=== PATIENT | male | born 1945 | race Two or more races ===

== ENCOUNTER → 2024-09-06 | Outpatient (CLI) | payer OTHER, MEDICAID, SELFPAY ==
[2024-09-06 10:08] LABS: Collection Type, Urine Clean Catch; Squamous Epithelial Cell,Urine 0 /hpf (0-5)
[2024-09-06 10:33] LABS: Prostate Specific Antigen 2.66 ng/mL (0-4.00)
[2024-09-06 10:34] LABS: Basophils # (Auto) 0.1 Thou/mm3 (0.0-0.2); Basophils % (Auto) 1 % (0-2.5); Eosinophils # (Auto) 0.2 Thou/mm3 (0.0-0.5); Eosinophils % (Auto) 2 % (0-10); Hematocrit 39.8 % (41.0-53.0); Hemoglobin 13.2 g/dL (13.5-16.0); Immature Granulocytes % (Auto) 0 % (0-0); Immature Granulocytes Auto 0.01 Thou/mm3 (0.00-0.00); Lymphocytes # (Auto) 1.5 Thou/mm3 (1.0-4.8); Lymphocytes % (Auto) 17 % (10-50); Mean Corpuscular HGB Conc 33.2 g/dl (31.0-37.0); Mean Corpuscular Hemoglobin 29.7 pg (25.0-35.0); Mean Corpuscular Volume 90 fL (80-100); Monocytes # (Auto) 0.8 Thou/mm3 (0.0-0.8); Monocytes % (Auto) 9 % (0-12); Neutrophils # (Auto) 6.2 Thou/mm3 (1.8-7.7); Neutrophils % (Auto) 71 % (37-80); Nucleated Red Blood Cell % 0 /100 WBC (0); Platelet Count 247 Thou/mm3 (140-440); RDW Standard Deviation 45.1 fL (35.1-43.9); Red Blood Count 4.44 Miln/mm3 (4.50-5.90); White Blood Count 8.7 Thou/mm3 (3.8-10.6)
[2024-09-06 10:36] LABS: Vitamin D 25 Hydroxy Total 36.7 ng/mL (7.3-40.2)
[2024-09-06 10:40] LABS: Creatinine MALB Rnd Ur 49 mg/dL (30-125); Microalbumin Creat Ratio 451 mg/gCrea (<30); Microalbumin, Random Urine 221 mg/L (0-300)
[2024-09-06 10:48] LABS: Alanine Aminotransferase 18 U/L (10-49); Albumin, Serum 4.5 gm/dL (3.4-4.8); Albumin/Globulin Ratio 1.9 (1.2-2.2); Alkaline Phosphatase 127 U/L (46-116); Anion Gap 7 (7-16); Aspartate Amino Transferase 18 U/L (0-34); BUN/Creatinine Ratio 16 Ratio (12-20); Bilirubin,Total 0.4 mg/dL (0.3-1.2); Blood Urea Nitrogen 14 mg/dL (9-23); Calcium 9.4 mg/dL (8.3-10.6); Calcium (Corrected) 9.4 mg/dL (8.5-10.1); Carbon Dioxide 25.9 mMol/L (20.0-31.0); Cardiac Risk Estimate 4.5 RATIO (4.0-6.7); Chloride 104 mMol/L (98-107); Cholesterol 131 mg/dL (132-200); Creatinine (Component) 0.9 mg/dL (0.6-1.3); Globulin 2.4 gm/dL (2.3-3.5); Glucose 145 mg/dL (74-106); HDL Cholesterol 29 mg/dL (40-60); LDL Cholesterol,Calculated 81 mg/dL (0-130); Osmolality,Calculated 277 (275-295); Potassium 4.4 mMol/L (3.4-5.1); Sodium 137 mMol/L (136-145); Thyroid Stimulating Hormone 3.31 uIU/mL (0.55-4.78); Total Protein 6.9 gm/dL (5.7-8.2); Triglycerides 106 mg/dL (30-150); eGFR > 60 See Note
[2024-09-06 11:33] LABS: Bilirubin,Urine Negative (Negative); Blood,Urine Negative (Negative); Clarity,Urine Clear (Clear/Hazy); Color,Urine Colorless (Lt Yel-Yel); Glucose, Urine Negative (Negative); Ketones,Urine Negative (Negative); Leukocyte Esterase,Urine Negative (Negative); Nitrite,Urine Negative (Negative); Protein,Urine 1+ (Neg - Trace); RBC,Urine 2 /hpf (0-3); Specific Gravity,Urine 1.011 (1.001-1.035); Urobilinogen,Urine Negative mg/dL (0.0-1.0); WBC,Urine 1 /hpf (0-5)
[2024-09-06 11:46] LABS: Glucose Estimated Average 157 mg/dL (80-131); Hemoglobin A1C 7.1 % Hgb (4.8-6.0)
== END | disposition home or self-care (01) ==
LOC: COPL 09:26
PROVIDERS: PCP Family Medicine; Referring Provider Family Medicine; Visit Provider Family Medicine
DX: Z00.00 Encounter for general adult medical examination without abnormal findings (principal); Z13.0 Encounter for screening for diseases of the blood and blood-forming organs and certain disorders involving the immune mechanism; Z13.29 Encounter for screening for other suspected endocrine disorder; Z13.21 Encounter for screening for nutritional disorder; Z13.220 Encounter for screening for lipoid disorders
CPT/HCPCS: 36415; 80053; 80061; 81001; 82043; 82306; 82570; 83036; 84153; 84443; 85025; 87077; 87086; 87186

== ENCOUNTER → 2024-09-07 | Outpatient (CLI) | payer OTHER, MEDICAID, SELFPAY ==
[2024-09-10 06:15] LABS: Fecal Globin Result NOT DETECTED (NOT DETECTED)
== END | disposition home or self-care (01) ==
PROVIDERS: PCP Family Medicine; Referring Provider Family Medicine; Visit Provider Family Medicine
DX: Z12.11 Encounter for screening for malignant neoplasm of colon (principal)
CPT/HCPCS: 82274; G0328

== ENCOUNTER → 2024-11-24 | Outpatient (CLI) | payer MEDICARE, MEDICAID, SELFPAY ==
[2024-11-24 09:56] LABS: Glucose Estimated Average 154 mg/dL (80-131)
== END | disposition home or self-care (01) ==
PROVIDERS: PCP Family Medicine; Referring Provider Family Medicine; Visit Provider Family Medicine
DX: E11.9 Type 2 diabetes mellitus without complications (principal); E03.9 Hypothyroidism, unspecified
CPT/HCPCS: 36415; 83036

== ENCOUNTER → 2024-12-29 | Outpatient (CLI) | payer MEDICARE, MEDICAID, SELFPAY ==
[2024-12-29 10:47] LABS: Glucose Estimated Average 151 mg/dL (80-131); Hemoglobin A1C 6.9 % Hgb (4.8-6.0)
== END | disposition home or self-care (01) ==
LOC: COPL 09:07
PROVIDERS: PCP Family Medicine; Referring Provider Family Medicine; Visit Provider Family Medicine
DX: E11.9 Type 2 diabetes mellitus without complications (principal)
CPT/HCPCS: 36415; 83036

== ENCOUNTER → 2025-02-22 | Outpatient (CLI) | payer MEDICARE, MEDICAID, SELFPAY ==
[2025-02-22 11:10] LABS: Thyroid Stimulating Hormone 2.82 uIU/mL (0.55-4.78)
== END | disposition home or self-care (01) ==
LOC: COPL 09:01
PROVIDERS: PCP Family Medicine; Referring Provider Family Medicine; Visit Provider Family Medicine
DX: E03.9 Hypothyroidism, unspecified (principal)
CPT/HCPCS: 36415; 84443

== ENCOUNTER → 2025-03-22 | Outpatient (CLI) | payer MEDICARE, MEDICAID, SELFPAY ==
[2025-03-22 11:02] LABS: Glucose Estimated Average 154 mg/dL (80-131); Hemoglobin A1C 7.0 % Hgb (4.8-6.0)
== END | disposition home or self-care (01) ==
LOC: COPL 08:43
PROVIDERS: PCP Family Medicine; Referring Provider Family Medicine; Visit Provider Family Medicine
DX: E11.9 Type 2 diabetes mellitus without complications (principal)
CPT/HCPCS: 36415; 83036

== ENCOUNTER → 2025-04-28 | Outpatient (CLI) | payer MEDICARE, MEDICAID, SELFPAY ==
[2025-04-28 11:11] LABS: Alanine Aminotransferase 17 U/L (10-49); Albumin, Serum 4.3 gm/dL (3.4-4.8); Alkaline Phosphatase 124 U/L (46-116); Aspartate Amino Transferase 27 U/L (0-34); Bilirubin,Direct 0.1 mg/dL (0.0-0.3); Bilirubin,Total 0.3 mg/dL (0.3-1.2); Total Protein 7.0 gm/dL (5.7-8.2)
[2025-04-28 14:22] LABS: Cholesterol 124 mg/dL (132-200); Triglycerides 109 mg/dL (30-150)
[2025-04-28 14:57] LABS: Cardiac Risk Estimate 4.0 RATIO (4.0-6.7); HDL Cholesterol 31 mg/dL (40-60); LDL Cholesterol,Calculated 71 mg/dL (0-130)
== END | disposition home or self-care (01) ==
LOC: COPL 09:21
PROVIDERS: PCP Family Medicine; Referring Provider Family Medicine; Visit Provider Family Medicine
DX: E78.5 Hyperlipidemia, unspecified (principal)
CPT/HCPCS: 36415; 80061; 80076

== ENCOUNTER → 2025-06-16 | Outpatient (CLI) | payer MEDICARE, MEDICAID, SELFPAY ==
[2025-06-16 09:34] LABS: Glucose Estimated Average 166 mg/dL (80-131); Hemoglobin A1C 7.4 % Hgb (4.8-6.0)
== END | disposition home or self-care (01) ==
LOC: COPL 08:27
PROVIDERS: PCP Family Medicine; Referring Provider Family Medicine; Visit Provider Family Medicine
DX: E11.9 Type 2 diabetes mellitus without complications (principal)
CPT/HCPCS: 36415; 83036